=== PATIENT | female | born 1955 | race Caucasian/White ===

== ENCOUNTER 2017-01-29 17:33 | Emergency (ER) | payer BC ==
[2017-01-29 18:03] VITALS: BP 114/65; PULSE 79; TEMP 97.9; BMI 36.8
--- NOTE | 2017-01-29 19:40 | PDOC ---
History of Present Illness - General Chief Complaint: Pain, Acute Stated Complaint: PAIN, ACUTE Time Seen by Provider: 01/29/17 18:53 - History of Present Illness Initial Comments: 01/29/17 19:58 Patient is a 61 year old female with a history of hypothyroidism, SVT who presents with lower abdominal pain. Patient reports onset of intermittent 8/10 sharp lower abdominal pain 24 hours ago. She states that the pain lasts only a few seconds before resolving, however has been getting more frequent prompting her visit to the ED today. She states that she was evaluated by her well site drilling engineer today for vaginal itching and concerns of a yeast infection and informed her well site drilling engineer of her pain. She states that her well site drilling engineer did a pelvic exam that was normal and suggested she go for an US tomorrow, however due to the pain getting more frequent, the patient opted to present to the ED today. She does endorse some poorly described pain on urination, but denies any fevers, chills, chest pain, SOB, or changes with bowel movements. Of note, the patient is s/p cholecystectomy and a previous umbilical hernia repair. Past History - Past Medical History Allergies/Adverse Reactions: Allergies Allergy/AdvReac Type Severity Reaction Status Date / Time No Known Allergies Allergy Verified 01/29/17 17:59 Home Medications: Ambulatory Orders Levothyroxine Sodium [Synthroid] 125 mcg PO DAILY tablet 12/28/14 Aspirin [ASA -] 81 mg PO DAILY #30 tab.chew 06/27/16 Levothyroxine [Synthroid -] 125 mcg PO DAILY@0700 #30 tablet 06/27/16 Metoprolol Succinate [Toprol XL -] 25 mg PO DAILY #30 tab.sr.24h 06/27/16 Levofloxacin [Levaquin -] 250 mg PO DAILY #2 tablet 01/30/17 Cardiac Disorders: Yes (HX SVT) Thyroid Disease: Yes (HYPOTHYROID) - Surgical History Abdominal Surgery: Yes (HERNIA) Cholecystectomy: Yes - Immunization History Immunization Up to Date: Yes - Psycho/Social/Smoking Cessation Hx Suicidal Ideation: No Smoking History: Current every day smoker Have you smoked in the past 12 months: No Number of Cigarettes Smoked Daily: 2 Information on smoking cessation initiated: No Hx Alcohol Use: No Drug/Substance Use Hx: No Substance Use Type: None Review of Systems - Review of Systems Constitutional: No: Chills, Fever Respiratory: No: Cough, Shortness of Breath Cardiac (ROS): No: Chest Pain, Lightheadedness, Palpitations ABD/GI: No: Constipated, Diarrhea, Nausea, Rectal Bleeding, Vomiting, Tarry Stools : Yes: Dysuria. No: Hematuria Integumentary: No: Rash Neurological: No: Headache, Numbness, Tingling, Weakness *Physical Exam - Vital Signs Last Vital Signs Temp Pulse Resp BP Pulse Ox 97.9 F 79 16 114/65 100 01/29/17 17:59 01/29/17 17:59 01/29/17 17:59 01/29/17 17:59 01/29/17 17:59 - Physical Exam Comments: 01/29/17 20:25 General Appearance: Nourished. No Apparent Distress HEENT: No Pharyngeal Erythema, Tonsillar Exudate, Tonsillar Erythema Respiratory/Chest: Lungs Clear, Normal Breath Sounds. No Crackles, Rales, Rhonchi, Wheezing Cardiovascular: Regular Rhythm, Regular Rate. No Murmur, Gallop/S3, Gallop/S4 Gastrointestinal/Abdominal: Normal Bowel Sounds, Soft, Diffuse tenderness to palpation in the lower quadrants worse in the lower right and suprapubic quadrants. No Guarding, Rebound Musculoskeletal: Normal Inspection. No CVA Tenderness Extremity: Normal Capillary Refill Integumentary: Normal Color, Dry, Warm Neurologic: Fully Oriented, Alert, Normal Mood/Affect, Normal Response ED Treatment Course - LABORATORY CBC & Chemistry Diagram: 01/29/17 20:39 01/29/17 20:39 Medical Decision Making - Medical Decision Making 01/29/17 20:26 Patient is a 61 year old female who presents with lower abdominal pain. Differential includes but is not limited to: UTI, Nephrolethiasis, Appendicitis , Ovarian pathology. Given her previous evaluation by her well site drilling engineer, we are less concerned for ovarian pathology at this time. Given her complaints and physical exam, appendicitis and UTI are possibilities that must be evaluated. We will obtain a UA to evaluate for UTI, and will obtain a CT abdomen to evaluate for abdominal pathology such as appendicitis. We will also obtain a cbc, cmp to evaluate for any infectious etiologies or electrolyte abnormalities. 01/29/17 21:47 CBC and CMP are unremarkable. UA demonstrates 3+ leuk esterase as well as 100+ WBC concerning for uncomplicated UTI. CT abdomen is still pending. 01/30/17 00:26 CT abdomen is negative as read by our radiologist. The patient's symptoms are likely due to uncomplicated UTI. We will treat with Levaquin 250mg for 3 days as this is her first incident of a UTI. We discussed the results with the patient and feel comfortable discharging the patient home. The patient is agreeable to the plan. *DC/Admit/Observation/Transfer Diagnosis at time of Disposition: UTI (urinary tract infection) Qualifiers: Urinary tract infection type: acute cystitis Hematuria presence: without hematuria Qualified Code(s): N30.00 - Acute cystitis without hematuria - Discharge Dispostion Disposition: HOME Condition at time of disposition: Improved Admit: No - Prescriptions Prescriptions: Levofloxacin [Levaquin -] 250 mg PO DAILY #2 tablet - Patient Instructions Printed Discharge Instructions: DI for Urinary Tract Infection (UTI) Additional Instructions: Please return to the ER if you experience concerning or worsening symptoms including fevers or chills. We have prescribed Levaquin for your UTI and given your first dose here in the ER. Please take daily for the next 2 days. Please follow up with your primary care provider to discuss your ER visit. - Attestations Physician Attestion: 01/30/17 00:21 I, Dr. Oscar Landaverde, attest that this document has been prepared under my direction and personally reviewed by me in its entirety. I further attest, that it accurately reflects all work, treatment, procedures and medical decision -making performed by me.
--- NOTE | 2017-01-29 20:08 | PDOC ---
Attending Attestation - Resident Resident Name: Oscar Landaverde - ED Attending Attestation I have performed the following: I have examined & evaluated the patient, The case was reviewed & discussed with the resident, I agree w/resident's findings & plan, Exceptions are as noted - HPI HPI: 01/29/17 20:01 Agree with the resident's HPI as documented in the electronic medical record. - Physicial Exam PE: 01/29/17 20:01 Agree with the resident's physical examination as documented in the electronic medical record. - Medical Decision Making 01/29/17 20:01 And 61-year-old female with history of hypertension and hypothyroid disease presents to the emergency Department with complaints of lower abdominal pain since last night along with dysuria. Differential diagnosis includes but is not limited to: UTI, pyelonephritis, ovarian pathology, nephrolithiasis. Plan: 1. Labs 2. Urine analysis 3. Pain management 4. CT scan of the abdomen and pelvis 5. Observe and reevaluate
[2017-01-29 21:06] LABS: MCH 29.2 pg (25.7-33.7); MCHC 33.5 g/dl (32.0-36.0); MEAN CELL VOLUME 87.1 fl (80-96); NEUTROPHILS 60.7 % (42.8-82.8); PLATELET COUNT 231 K/MM3 (134-434); RDW 14.5 % (11.6-15.6); WHITE BLOOD COUNT 9.1 K/mm3 (4.0-10.0)
[2017-01-29 21:08] LABS: URINE APPEARANCE CLOUDY; URINE BILIRUBIN NEGATIVE (NEGATIVE); URINE BLOOD 2+ (NEGATIVE); URINE COLOR YELLOW; URINE GLUCOSE (UA) NEGATIVE (NEGATIVE); URINE KETONE NEGATIVE (NEGATIVE); URINE LEUK ESTERASE 3+ (NEGATIVE); URINE NITRITE NEGATIVE (NEGATIVE); URINE PROTEIN NEGATIVE (NEGATIVE); URINE UROBILINOGEN NEGATIVE mg/dL (0.2-1.0)
[2017-01-29 21:18] LABS: URINE MUCUS RARE; URINE RBC 50 /hpf (0-3); URINE WBC 189 /hpf (3-5)
[2017-01-29 21:30] LABS: ALBUMIN 3.9 g/dl (3.4-5.0); ANION GAP 5 (8-16); CALCIUM 9.4 mg/dL (8.5-10.1); CO2 28 mmol/L (21-32); CREATININE 0.7 mg/dL (0.55-1.02); GLUCOSE,RANDOM 76 mg/dL (74-106); SGOT/AST 17 U/L (15-37); SGPT/ALT 26 U/L (12-78)
[2017-01-29 21:32] LABS: ALK PHOS 89 U/L (45-117); BILIRUBIN,TOTAL 0.3 mg/dL (0.2-1.0); TOT PROT 7.6 g/dl (6.4-8.2)
[2017-01-29] MEDS ORDERED: LEVOFLOXACIN 250 MG TABLET (FP) PO ONE (23:46)
[2017-01-30] MEDS ORDERED: LEVOFLOXACIN 250 MG TABLET (FP) ONE (00:14)
== END 2017-01-30 00:48 | disposition home or self-care (01) ==
LOC: JER 17:33
DX: N30.00 Acute cystitis without hematuria (principal); E03.9 Hypothyroidism, unspecified; Z86.79 Personal history of other diseases of the circulatory system
CPT/HCPCS: 36415; 74176-TC; 80053; 81003; 81015; 85025; 99282-25

== ENCOUNTER 2022-09-18 06:07 | Day surgery (SDC) | payer OTHER, BC ==
[2022-09-06 17:45] VITALS: BMI 36.0
[2022-09-18] MEDS ORDERED: ceFAZolin SODIUM 1 GM VIAL ONE ×3 (07:28→08:55)
[2022-09-18] MEDS ORDERED: GENTAMICIN SO4 80 MG/2 ML VIAL ONE ×2 (07:28→08:55)
[2022-09-18] MEDS ORDERED: PROPOFOL 20 ML ONE ×3 (07:51→09:00)
[2022-09-18] MEDS ORDERED: ROCURONIUM BROMIDE 50 MG/5 ML SYRINGE ONE (07:52)
[2022-09-18] MEDS ORDERED: MIDAZOLAM HCL 2 MG/2 ML SINGLE DOSE VIAL ONE (07:52)
[2022-09-18] MEDS ORDERED: SUCCINYLCHOLINE CHLORIDE 200 MG/10 ML SYRINGE ONE (07:52)
[2022-09-18] MEDS ORDERED: BUPIVACAINE HCL 100 ML ONE (07:53)
[2022-09-18] MEDS ORDERED: oxyCODONE HCL 5 MG TABLET PO PRN ×3 (10:04→10:20)
[2022-09-18] MEDS ORDERED: ONDANSETRON 4 MG/2 ML VIAL IVPUSH PRN (10:04)
[2022-09-18] MEDS ORDERED: FENTANYL CITRATE/PF 50 MCG/ML VIAL ONE (10:06)
[2022-09-18] MEDS ORDERED: ACETAMINOPHEN 1000 MG/100 ML BAG IVPB ONE (10:06)
[2022-09-18] MEDS ORDERED: ONDANSETRON 4 MG/2 ML VIAL IVPB PRN (10:20)
[2022-09-18] MEDS ORDERED: LACTATED RINGERS SOLUTION 1,000 ML IV SCH (10:30)
[2022-09-18] MEDS ORDERED: oxyCODONE HCL 5 MG TABLET ONE (11:01)
[2022-09-18 11:44] VITALS: RESP 16; TEMP 97.7
[2022-09-18 11:47] VITALS: BP 106/74; PULSE 70
== END 2022-09-18 11:55 | disposition home or self-care (01) ==
LOC: FASU 06:07
PROVIDERS: ATTEND Plastic Surgery
PROC: 0HRT0JZ Replacement of Right Breast with Synthetic Substitute, Open Approach (ICD-10-PCS; 2022-09-18)
PROC: 0HPT0JZ Removal of Synthetic Substitute from Right Breast, Open Approach (ICD-10-PCS; principal; 2022-09-18 08:31)
DX: T85.41XA Breakdown (mechanical) of breast prosthesis and implant, initial encounter (principal); T85.44XA Capsular contracture of breast implant, initial encounter; Y82.8 Other medical devices associated with adverse incidents; Y92.9 Unspecified place or not applicable; Y83.8 Other surgical procedures as the cause of abnormal reaction of the patient, or of later complication, without mention of misadventure at the time of the procedure
CPT/HCPCS: 19342; 19371; L8600; 88304-TC; 94760; C1789